=== PATIENT | male | born 1980 | race Caucasian/White ===

== ENCOUNTER 2017-11-30 14:42 | Emergency (ER) | payer SELFPAY ==
[~2017-11-30] VITALS: Ht 182.9 cm; Wt 80.9 kg
[~2017-11-30 14:42] MED LIST: JOCK ITCH15 GM TP
[2017-11-30 15:00] LABS: HEMOGLOBIN 13.9 G/DL (12.5-16.6); MCH 31.3 PG (29.0-34.0); MCHC 34.8 G/DL (30.0-36.0); MCV 90.1 FL (86-99); PLATELET COUNT 206 K/uL (156-360); RBC DIS.WIDTH-SD 42.8 % (39-53); RED BLOOD COUNT 4.44 M/uL (4.00-5.50); WHITE BLOOD COUNT 9.5 K/uL (4.1-10.2)
[2017-11-30 15:12] LABS: CHLORIDE 105 mEq/L (99-109); POTASSIUM 3.6 mEq/L (3.7-5.4); SODIUM 138 mEq/L (136-147)
[2017-11-30 15:13] LABS: GLUCOSE 121 mg/dL (70-99)
[2017-11-30 15:17] LABS: CREATININE 0.8 mg/dL (0.6-1.3); GFR ESTIMATE (CALCULATED) > 59 mL/min/ (58.99-99999)
[2017-11-30 15:18] LABS: UREA NITROGEN (BUN) 14 mg/dL (9-23)
[2017-11-30 15:22] LABS: TROP-I INTERPRETATION NEGATIVE; TROPONIN-I < 0.01 ng/mL (0.0-0.30)
[2017-11-30 17:28] VITALS: BP 107/67
== END 2017-11-30 17:34 | disposition home or self-care (01) ==
LOC: EME 14:42
DX: R07.9 Chest pain, unspecified (principal); F41.9 Anxiety disorder, unspecified; R55 Syncope and collapse; F17.200 Nicotine dependence, unspecified, uncomplicated; F12.90 Cannabis use, unspecified, uncomplicated; G89.29 Other chronic pain
CPT/HCPCS: 71046; 80048; 84484; 85027; 93005; 99281; 99284